=== PATIENT | male | born 1985 | race Hispanic/Latino ===

== ENCOUNTER 2022-08-29 12:41 | Emergency (ER) | payer BC ==
[~2022-08-29] VITALS: Ht 170.2 cm; Wt 83.9 kg
[2022-08-29] MEDS ORDERED: CEFTRIAXONE 1 GM VIAL IM ONE (13:15)
[2022-08-29] MEDS ORDERED: CLEOCIN HCL300 MG PO (13:20)
[2022-08-29] MEDS ORDERED: DOXYCYCLINE HY100 MG PO (13:20)
[2022-08-29] MEDS ORDERED: CEFTRIAXONE 1 GM VIAL ONE (13:26)
[2022-08-29] MEDS ORDERED: LIDOCAINE 1% 10 ML MULTIDOSE VIAL IJ ONE (13:26)
== END 2022-08-29 14:11 | disposition home or self-care (01) ==
LOC: FSED 12:44
DX: L03.011 Cellulitis of right finger (principal); W55.01XD Bitten by cat, subsequent encounter
CPT/HCPCS: 96372; 99282; J0696